=== PATIENT | female | born 1940 | race African-American/Black ===

== ENCOUNTER → 2021-06-11 10:29 | Outpatient (BNVA) | payer MEDICARE, SELFPAY | PROVIDERS: PCP Nurse Practitioner Family; Visit Provider Internal Medicine Cardiovascular Disease | DX: I71.4 Abdominal aortic aneurysm, without rupture (principal); I44.7 Left bundle-branch block, unspecified; I20.8 Other forms of angina pectoris; I10 Essential (primary) hypertension; E11.9 Type 2 diabetes mellitus without complications | CPT/HCPCS: 93005; 99202 ==

== ENCOUNTER → 2021-07-21 08:48 | Outpatient (REF) | payer MEDICARE, SELFPAY ==
--- NOTE | 2021-07-21 12:02 | CA_ITS ---
Transthoracic Echocardiogram Patient (Last, First, Middle): Delmi Malik, Gender: Female Date of : 1940 Age: 80 Procedure Date: 07/21/2021 Procedure Type: Transthoracic Echocardiogram Location: OP Height: 162.56 cm Weight: 86.01 kg BSA: 1.91 m2 Heart Rate: bpm BP: 118 / 60 mmHg Clinical Unit Educator: KIM Referring MD: Augustus Leiva MD Symptoms: I44.7 - Left bundle-branch block, unspecified Study Quality: Fair ECG Rhythm: Sinus Conclusions: - The left ventricular systolic function is normal. The visually estimated ejection fraction is between 65-70%. - LV peak GLS -17.6%. - There is mild mitral valve regurgitation. - (due to technical difficulty, reporting delayed). Findings Left Ventricle Normal left ventricular cavity size. There is mildly increased left ventricular wall thickness. The left ventricular systolic function is normal. The visually estimated ejection fraction is between 65-70%. E/E prime ratio is between 8 and 15 consistent with indeterminate filling pressures. Evidence suggests grade I (mild) diastolic dysfunction. LV peak GLS -17.6%. Right Ventricle Normal right ventricular cavity size and systolic function. Atria Both atria are normal in size. Aortic Valve There is a normal trileaflet aortic valve. There is no aortic valve stenosis. There is no aortic valve regurgitation. Mitral Valve The mitral valve appears normal. There is mild mitral valve regurgitation. There is no mitral valve stenosis. Pulmonic Valve The pulmonic valve was not well visualized. Tricuspid Valve Normal tricuspid valve structure. There is trace tricuspid valve regurgitation. The pulmonary artery systolic pressure is normal. Great Vessels The aorta was not well visualized. The sino tubular ridge is normal in size. Venous The inferior vena cava is normal in size and collapses greater than 50% with inspiration. Pericardium/Pleural There is no evidence of pericardial effusion. Prior Study Comparison No significant change compared to prior study dated: 07/05/2019. Measurements 2D Linear Measurements IVSd: 1.09 0.6-0.9/0.6-1.0 cm LVIDd: 4.27 3.9-5.3/4.2-5.9 cm LVIDd Index: 2.24 2.4-3.2/2.2-3.1 cm/m2 LVIDs: 2.71 2.0-3.6 cm LVPWd: 1.07 0.7-1.1 cm Ao Root: 2.60 2.1-3.5 cm LA Diam: 3.60 2.7-3.8/3.0-4.0 cm LAIDs Index: 1.88 1.5-2.3 cm/m2 LV Mass: 195.51 67-162/88-224 g LV Mass Index: 102.36 43-95/49-115 g/m2 LVOT Diam: 1.90 3.0+(-)1.3 cm 2D Systolic Function EF 4C: 78.70 >55% EF 2C: 73.90 >55% EF BiP: 76.80 >55% Mitral Valve MV Pk E: 0.70 MV PK A: 0.85 MV Decel Time: 177.00 E/A: 0.80 E'Lateral: 6.20 E'Medial: 5.11 E/E' Med: 13.70 E/E' Lat: 11.30 PHT: 52.00 MVA PHT: 4.23 Decel [place]: 3.94 Aortic Valve AoV Pk Zeke: 1.57 AoV Pk Grad: 10.00 LVOT LVOT Pk Zeke: 1.23 LVOT Mn Zeke: 0.90 LVOT VTI: 0.31 LVOT Pk Grad: 6.00 LVOT Mn Grad: 4.00 LVOT Diam: 1.90 LVOT Area: 2.84 Diastolic Function MV Pk E: 0.70 MV Pk A: 0.85 E/A: 0.80 E'Medial: 5.11 E/E' Med: 13.70 E' Laterial: 6.20 E/E' Lat: 11.30 Right Ventricle TAPSE (mm): 2.20 Tricuspid Valve TR Pk Zeke: 2.46 TR Pk Grad: 24.00 RVSP: 27.00 Great Vessels Aorta Ao Root-2D: 2.60 2.0-3.7 cm Updated in Other Vendor System with Status of Final Tejas Infante MD electronically signed on 07/26/2021 11:10:42 AM with status of Final
== END ==
LOC: HO.CARD 08:48
PROVIDERS: PCP Nurse Practitioner Family; Visit Provider Internal Medicine Cardiovascular Disease
DX: I44.7 Left bundle-branch block, unspecified (principal)
CPT/HCPCS: 93306; 93356

== ENCOUNTER 2021-08-07 08:42 | Outpatient (REF) | payer MEDICARE, SELFPAY ==
--- NOTE | ~2021-08-07 | MM_ITS ---
EXAMINATION: MM SCREENING DIGITAL BREAST TOMOSYNTHESIS, BILATERAL CLINICAL INFORMATION: Screening. Asymptomatic. The lifetime risk of breast cancer based on the Tyrer-Cuzick Model is 1.2%. COMPARISON: Mammography: June 27, 2020 and studies dating back to June 28, 2012 TECHNIQUE: Digital breast tomosynthesis is performed in both the craniocaudal and mediolateral oblique views along with computer-aided detection (CAD). Synthesized 2D images are generated from the tomosynthesis. FINDINGS: The breasts are almost entirely fatty (ACR BI-RADS breast composition Category a). There are no significant masses, abnormal calcifications, or other abnormalities. Stable calcifications seen about the inferior medial aspect of the left breast. MM/MM tomosynthesis screening BI IMPRESSION: There are no significant changes from prior study. ASSESSMENT: BI-RADS 2: Benign RECOMMENDATION: Routine annual mammography screening. This patient's information was entered into a reminder system with a target due date for their next mammogram.
== END 2021-08-07 08:43 | disposition home or self-care (01) ==
LOC: HO.MAMMO 08:42
PROVIDERS: Visit Provider Nurse Practitioner Family
DX: Z12.31 Encounter for screening mammogram for malignant neoplasm of breast (principal)
CPT/HCPCS: 77063; 77067

== ENCOUNTER 2021-09-16 08:51 | Outpatient (REF) | payer MEDICARE, SELFPAY ==
[2021-09-16 10:41] LABS: Free T4 (Free Thyroxine) 0.81 ng/dL (0.71-1.85); Thyroid Stimulating Hormone 1.04 uIU/mL (0.32-4.0)
== END 2021-09-16 08:52 | disposition home or self-care (01) ==
LOC: HO.LAB 08:51
PROVIDERS: PCP Nurse Practitioner Family; Visit Provider Nurse Practitioner Family
DX: R94.6 Abnormal results of thyroid function studies (principal)
CPT/HCPCS: 36415; 84439; 84443

== ENCOUNTER 2022-08-13 08:16 | Outpatient (REF) | payer MEDICARE, SELFPAY ==
--- NOTE | ~2022-08-13 | MM_ITS ---
EXAMINATION: MM SCREENING DIGITAL BREAST TOMOSYNTHESIS, BILATERAL CLINICAL INFORMATION: Screening. Asymptomatic. COMPARISON: Mammography: August 07, 2021 and studies dating back to November 14, 2015 TECHNIQUE: Digital breast tomosynthesis is performed in both the craniocaudal and mediolateral oblique views along with computer-aided detection (CAD). Synthesized 2D images are generated from the tomosynthesis. FINDINGS: There are scattered areas of fibroglandular density (ACR BI-RADS breast composition Category b). There are no new significant masses, abnormal calcifications, or other abnormalities. MM/MM tomosynthesis screening BI IMPRESSION: No significant changes from prior exam. ASSESSMENT: BI-RADS 1: Negative RECOMMENDATION: Routine annual mammography screening. This patient's information was entered into a reminder system with a target due date for their next mammogram.
== END 2022-08-13 08:17 | disposition home or self-care (01) ==
LOC: HO.MAMMO 08:16
PROVIDERS: Visit Provider Nurse Practitioner Family
DX: Z12.31 Encounter for screening mammogram for malignant neoplasm of breast (principal)
CPT/HCPCS: 77063; 77067

== ENCOUNTER → 2023-01-05 10:06 | Outpatient (BNVA) | payer MEDICARE, SELFPAY | PROVIDERS: PCP Nurse Practitioner Family; Referring Provider Nurse Practitioner Family; Visit Provider Internal Medicine Cardiovascular Disease | DX: I20.8 Other forms of angina pectoris (principal); I44.7 Left bundle-branch block, unspecified; I10 Essential (primary) hypertension | CPT/HCPCS: 93005; 99212 ==

== ENCOUNTER → 2023-02-04 08:43 | Outpatient (REF) | payer MEDICARE, SELFPAY ==
--- NOTE | 2023-02-04 08:48 | CA_ITS ---
Transthoracic Echocardiogram Patient (Last, First, Middle): Delmi Malik, Gender: Female Date of : 1940 Age: 82 Procedure Date: 02/04/2023 Procedure Type: Transthoracic Echocardiogram Location: OP Height: 167.64 cm Weight: 84.37 kg BSA: 1.94 m2 Heart Rate: 73 bpm BP: 138 / 70 mmHg Cardiac Rehabilitation Specialist: KOBI Referring MD: Augustus Leiva MD Roofing Superintendent: Augustus Leiva MD Symptoms: I20.8 - Other forms of angina pectoris Study Quality: Adequate ECG Rhythm: Sinus Conclusions: - 1. Normal LV systolic function with grade 1 diastolic dysfunction 2. Normal cardiac valvular Doppler 3. Normal RV systolic pressure 4. No gross pericardial effusion Findings Left Ventricle Normal left ventricular size, thickness, and systolic function. The visually estimated ejection fraction is between 65-70%. There is paradoxical septal motion consistent with a left bundle branch block. Spectral Doppler is indicative of an impaired relaxation filling pattern. E/E prime ratio is <8, consistent with normal filling pressures. Evidence suggests grade I (mild) diastolic dysfunction. Peak GLS is -17.4%, borderline low. Right Ventricle Normal right ventricular cavity size and systolic function. Atria Both atria are normal in size. There is no evidence of interatrial shunt. Aortic Valve Normal aortic valve structure and function. There is no aortic valve stenosis. There is no aortic valve regurgitation. Mitral Valve Normal mitral valve structure and function. There is trace mitral valve regurgitation. There is no mitral valve stenosis. Pulmonic Valve The pulmonic valve was not well visualized. Tricuspid Valve Likely normal tricuspid valve structure and function. There is trace tricuspid valve regurgitation. The right ventricular systolic pressure is normal. The right ventricular systolic pressure is 13 mmHg. Normal right atrial pressure. There is no evidence of pulmonary hypertension. Great Vessels All visible segments of the aorta are normal in size. The pulmonary artery was not well visualized. Venous The inferior vena cava is normal in size and collapses greater than 50% with inspiration. Pericardium/Pleural There is no evidence of pericardial effusion. Prior Study Comparison No significant change compared to prior study dated: 07/21/2021. Measurements 2D Linear Measurements IVSd: 1.10 0.6-0.9/0.6-1.0 cm LVIDd: 4.31 3.9-5.3/4.2-5.9 cm LVIDd Index: 2.22 2.4-3.2/2.2-3.1 cm/m2 LVIDs: 2.83 2.0-3.6 cm LVPWd: 1.11 0.7-1.1 cm LA Diam: 3.00 2.7-3.8/3.0-4.0 cm LAIDs Index: 1.55 1.5-2.3 cm/m2 LV Mass: 204.99 67-162/88-224 g LV Mass Index: 105.66 43-95/49-115 g/m2 LVOT Diam: 1.90 3.0+(-)1.3 cm 2D Systolic Function EF 4C: 65.60 >55% EF 2C: 65.40 >55% EF BiP: 66.30 >55% Mitral Valve MV Pk E: 0.62 MV PK A: 0.94 MV Decel Time: 253.00 E/A: 0.70 E'Lateral: 5.66 E'Medial: 5.44 E/E' Med: 11.30 E/E' Lat: 10.90 PHT: 74.00 MVA PHT: 2.97 Decel [place]: 2.44 Aortic Valve AoV Pk Zeke: 1.38 AoV Mn Zeke: 1.02 AoV VTI: 0.31 AoV Pk Grad: 8.00 Aov Mn Grad: 5.00 YOANA Cont.VTI: 2.26 LVOT LVOT Pk Zeke: 1.10 LVOT Mn Zeke: 0.83 LVOT VTI: 0.25 LVOT Pk Grad: 5.00 LVOT Mn Grad: 3.00 LVOT Diam: 1.90 LVOT Area: 2.84 Diastolic Function MV Pk E: 0.62 MV Pk A: 0.94 E/A: 0.70 E'Medial: 5.44 E/E' Med: 11.30 E' Laterial: 5.66 E/E' Lat: 10.90 Tricuspid Valve TR Pk Zeke: 1.56 TR Pk Grad: 10.00 RA Press: 3.00 RVSP: 13.00 Great Vessels Aorta Sinus of Valsalva: 2.90 2.0-3.[address] [place]: 2.46 1.7-3.4 cm Ao Asc: 3.60 2.1-3.4 cm Updated in Other Vendor System with Status of Final Augustus Leiva MD electronically signed on 02/05/2023 2:25:25 PM with status of Final
== END ==
LOC: HO.CARD 08:43
PROVIDERS: PCP Nurse Practitioner Family; Visit Provider Internal Medicine Cardiovascular Disease
DX: I20.8 Other forms of angina pectoris (principal)
CPT/HCPCS: 93306; 93356; J0280; J2785

== ENCOUNTER → 2023-02-05 09:23 | Outpatient (REF) | payer MEDICARE, SELFPAY ==
--- NOTE | ~2023-02-05 | NM_ITS ---
Lexiscan Myocardial perfusion study Indication: Chest pain, assess for coronary disease and ischemia Technique: The patient was brought in for a Lexiscan perfusion study on 02/05/2023 and was injected 0.4 mg of Lexiscan intravenously. Within a minute of this injection 30 mCi of sestamibi was given intravenously. Images were obtained using the SPECT gamma camera interlaced with the gating device. Images were obtained in supine position. Resting perfusion study was performed on 02/11/2023. Patient was administered 30 mCi of sestamibi intravenously at rest. Images were then obtained in supine position. Images were processed with the software and compared side to side in short axis, horizontal long axis and vertical long axis views. Total DLP 141mGy-cm. Findings: Raw acquisition reviewed. Arms by the patient's side. The stress perfusion study showed diminished tracer uptake along the septum. There is some improvement with CT attenuation correction and hence there could be partially artifactual etiology.. The gated study shows diminished LV systolic function with calculated LVEF of 33%. LV cavity is normal in size. The gated study shows globally reduced wall thickening and contraction of segments. Resting study shows reduced tracer uptake along the septum but slightly better compared to stress acquisition. There is improvement with CT attenuation correction in the base and mid areas but the apical septum still has perfusion of normality.. Gating at rest reveals globally reduced wall motion with ejection fraction at 23%. The findings are consistent with mostly fixed appearing septal defect, with slight reversibility. NM/NM cortes perf SPECT rest & str Impression: 1. Myocardial perfusion imaging study shows fixed anteroseptal defect with mild reversibility. Cannot differentiate if this is all from left bundle branch block or if additional ischemia. 2. Gated LVEF is 33% during stress and 20% during rest. Correlate with echocardiogram. Visually, LVEF appears higher. 3. Transient ischemic dilatation not present. EKG component of the test reported separately.
--- NOTE | 2023-02-05 09:29 | CA_ITS ---
Acquisition Time: 2023-02-05 09:07:05 Total Exercise Time: 00:02:00 Test Indications: Abnormal ECG CP Medications: ASA CITALOPRAM HCTZ ISOSORBIDE LISINOPRIL METFORMIN METOPROLOL SIMVASTATIN Protocol: LEXISCAN Max HR: 101 BPM 73% of Pred: 138 BPM Max BP: 132/078 mmHG Max Work Load: 1.0 METS Pharmacological stress test with Lexiscan injection while sitting and slowly kicking her legs for one minute, without anginal symptoms, isolated PACs, with normotensive response to injection, without EKG changes. Aminophylline 75mg IVP given to reverse Lexiscan. Nuclear images pending. Test reviewed with Dr. Leiva. Referred By: Augustus Leiva Overread By: MG MANN
== END ==
LOC: HO.CARD 09:23
PROVIDERS: Visit Provider Internal Medicine Cardiovascular Disease
DX: I20.8 Other forms of angina pectoris (principal)
CPT/HCPCS: 78452; 93017; A9500

== ENCOUNTER 2023-08-11 10:13 | Outpatient (REF) | payer MEDICARE, SELFPAY ==
--- NOTE | ~2023-08-11 | US_ITS ---
EXAMINATION: US THYROID CLINICAL INFORMATION: Thyrotoxicosis, overactive thyroid gland. COMPARISON: None available. TECHNIQUE: Linear transducer serrano-scale and color Doppler examination with attention to the region of the thyroid. FINDINGS: SIZE: Measurements of the thyroid lobes and nodules are given in sagittal, anteroposterior and transverse dimensions respectively. Right Thyroid Lobe: 4.7 x 2.6 x 2.4 cm, volume 15.0 mL. Parenchyma: The gland echotexture is heterogeneous. Thyroid vascularity is increased. Left Thyroid Lobe: 4.9 x 2.6 x 2.0 cm, volume 13.3 mL. Parenchyma: The gland echotexture is heterogeneous. Thyroid vascularity is normal. Isthmus: 1.0 cm in maximum AP dimension. Estimated total number of nodules greater than or equal to 1 cm: 4. Assistant Toddler Teacher nodules are described as follows: 1. Location: Right superior. Size: 1.5 x 0.9 x 1.3 cm, volume 0.9 mL. Nodule characteristics: Composition: Solid/almost completely solid (2). Echogenicity: Hypoechoic (2). Shape: Not taller than wide (0). Margins: Ill-defined (0). Echogenic Foci: Punctate echogenic foci (3). ACR TI-RADS total points: 7 ACR TI-RADS category: 5 2. Location: Right inferior. Size: 1.6 x 1.1 x 2.2 cm, volume 2.0 mL. Nodule characteristics: Composition: Solid (2). Echogenicity: Isoechoic (1). Shape: Not taller than wide (0). Margins: Smooth (0). Echogenic Foci: None (0). ACR TI-RADS total points: 3 ACR TI-RADS category: 3 3. Location: Right mid. Size: 1.0 x 0.9 x 1.3 cm, volume 0.6 mL. Nodule characteristics: Composition: Solid/almost completely solid (2). Echogenicity: Hyperechoic (1). Shape: Not taller than wide (0). Margins: Smooth (0). Echogenic Foci: None (0). ACR TI-RADS total points: 3 ACR TI-RADS category: 3 4. Location: Left-sided. Size: 0.7 x 0.6 x 0.6 cm, volume 0.1 mL. Nodule characteristics: Composition: Solid/almost completely solid (2). Echogenicity: Isoechoic (1). Shape: Not taller than wide (0). Margins: Smooth (0). Echogenic Foci: None (0). ACR TI-RADS total points: 3 ACR TI-RADS category: 3 5. Location: Left inferior. Size: 1.2 x 0.8 x 1.1 cm, volume 0.6 mL. Nodule characteristics: Composition: Solid/almost completely solid (2). Echogenicity: Hyperechoic (1). Shape: Not taller than wide (0). Margins: Ill-defined (0). Echogenic Foci: None (0). ACR TI-RADS total points: 3 ACR TI-RADS category: 3 NODES: No lymphadenopathy is seen in the tissue surrounding the thyroid gland. US/US thyroid IMPRESSION: Multinodular thyroid gland. 1.5 cm TR 5 nodule in the right upper gland meets ACR TI-RADS guidelines for fine-needle aspiration. The other nodules do not meet criteria for aspiration or ongoing surveillance. ACR TI-RADS RECOMMENDATION REFERENCE: Ultrasound-guided fine-needle aspiration, followup ultrasound, no further follow up. * TR1 (0 point) and TR2 (2 points): No FNA or follow up. * TR3 (3 points): FNA if more than or equal to 2.5 cm in maximum dimension, followup ultrasound in 1, 3 and 5 years if 1.5 to 2.4 cm in maximum dimension. * TR4 (4-6 points): FNA if more than or equal to 1.5 cm in maximum dimension, followup ultrasound in 1, 2, 3 and 5 years if 1 to 1.4 cm in maximum dimension. * TR5 (more than or equal to 7 points): FNA if more than or equal to 1 cm in maximum dimension, followup ultrasound every year for 5 years if 0.5 to 0.9 cm in maximum dimension. * TR3, TR4 or TR5 nodules that are below the size threshold for followup receive no follow up.
== END 2023-08-11 10:14 | disposition home or self-care (01) ==
LOC: HO.US 10:13
PROVIDERS: PCP Nurse Practitioner Family; Visit Provider Nurse Practitioner Family
DX: E05.90 Thyrotoxicosis, unspecified without thyrotoxic crisis or storm (principal)
CPT/HCPCS: 76536

== ENCOUNTER 2023-08-17 08:44 | Outpatient (REF) | payer MEDICARE, SELFPAY ==
--- NOTE | ~2023-08-17 | MM_ITS ---
EXAMINATION: MM SCREENING DIGITAL BREAST TOMOSYNTHESIS, BILATERAL CLINICAL INFORMATION: Screening. Asymptomatic. The patient has had 3 benign excisional biopsies of the left breast. COMPARISON: Mammography: This study is compared with prior exams dating back to 2017. TECHNIQUE: Digital breast tomosynthesis is performed in both the craniocaudal and mediolateral oblique views along with computer-aided detection (CAD). Synthesized 2D images are generated from the tomosynthesis. FINDINGS: The breasts are almost entirely fatty (ACR BI-RADS breast composition Category a). There are grouped calcifications at a middle depth and the lower inner quadrant of the left breast. These warrant additional mammographic imaging with magnification. Few, coarse, benign calcifications are also present in the deep third of the lower inner quadrant of the left breast. There is minor architectural change in the upper outer quadrant of the left breast from one of the prior benign surgical excisions. In the right breast, there are no significant masses, abnormal calcifications, or other abnormalities. There is coarse, benign calcification in the upper outer quadrant of the right breast which has the appearance of an involuting fibroadenoma. MM/MM tomosynthesis screening BI IMPRESSION: Grouped calcifications in the left breast warrants additional mammographic imaging with magnification.. No mammographic signs of malignancy right breast. ASSESSMENT: BI-RADS BI-RADS 0 - Incomplete: Needs additional Imaging. RECOMMENDATION: Additional views of the left breast. Radiology department staff will contact the patient for additional imaging. Additional Imaging required This examination should not preclude the clinical evaluation of a suspicious palpable abnormality. This patient's information was entered into a reminder system with a target due date for their next mammogram.
== END 2023-08-17 08:45 | disposition home or self-care (01) ==
LOC: HO.MAMMO 08:44
PROVIDERS: PCP Nurse Practitioner Family; Visit Provider Nurse Practitioner Family
DX: Z12.31 Encounter for screening mammogram for malignant neoplasm of breast (principal)
CPT/HCPCS: 77063; 77067

== ENCOUNTER → 2023-08-17 08:45 | Outpatient (BNV) | payer MEDICARE, SELFPAY | PROVIDERS: PCP Nurse Practitioner Family; Visit Provider Radiology Diagnostic Radiology | DX: Z12.31 Encounter for screening mammogram for malignant neoplasm of breast (principal) | CPT/HCPCS: 77063; 77067 ==

== ENCOUNTER 2023-09-13 09:30 | Outpatient (REF) | payer MEDICARE, SELFPAY ==
--- NOTE | ~2023-09-13 | MM_ITS ---
EXAMINATION: MM DIAGNOSTIC DIGITAL BREAST TOMOSYNTHESIS, LEFT CLINICAL INFORMATION: Evaluate left breast calcifications lower inner aspect left breast. Patient has history of 3 benign excisional biopsies left breast. COMPARISON: Mammography: 08/17/2023, 08/13/2022, 08/07/2021, 06/27/2020, and dating back to 2017. TECHNIQUE: Digital left breast tomosynthesis is performed in 90 degree ML 3-D view along with computer-aided detection (CAD). Synthesized 2D images are generated from the tomosynthesis. Spot magnification left CC and ML views were also obtained of the area of interest. FINDINGS: There are scattered areas of fibroglandular density (ACR BI-RADS breast composition Category b). Calcifications in the lower inner left breast were evaluated [id number] and determined to be benign, however on today's magnification views, there appears to be an increase in number with increasing pleomorphism. Although the findings may represent biopsy site and dystrophic changes, these are currently indeterminate, and stereotactic biopsy recommended for tissue diagnosis. Otherwise, stable scarring from excisional biopsies. Stable dystrophic calcifications in the inferior posterior left breast. No suspicious masses, or areas of architectural distortion left breast. MM/MM tomosynthesis diagnostic LT IMPRESSION: There are suspicious indeterminate calcifications in the left breast lower inner quadrant, for which stereotactic biopsy is recommended for tissue diagnosis. These have been followed in [id number], however has definitely increased in number and pleomorphism currently. Biopsy is indicated. Findings and recommendations were discussed with the patient in detail. ASSESSMENT: BI-RADS BI-RADS 4 - Suspicious finding RECOMMENDATION: Biopsy recommended
== END 2023-09-13 09:31 | disposition home or self-care (01) ==
LOC: HO.MAMMO 09:30
PROVIDERS: PCP Nurse Practitioner Family; Visit Provider Nurse Practitioner Family
DX: R92.1 Mammographic calcification found on diagnostic imaging of breast (principal)
CPT/HCPCS: 77061; 77065

== ENCOUNTER → 2023-09-13 09:30 | Outpatient (BNV) | payer MEDICARE, SELFPAY | PROVIDERS: PCP Nurse Practitioner Family; Visit Provider Radiology Diagnostic Radiology | DX: R92.1 Mammographic calcification found on diagnostic imaging of breast (principal) | CPT/HCPCS: 77061; 77065 ==

== ENCOUNTER 2023-09-22 08:03 | Outpatient (AMB) | payer MEDICARE, SELFPAY ==
--- NOTE | 2023-09-22 08:13 | A.OFFVIS_ITS ---
Intake Vital Signs 09/22/23 08:21 Weight 195 lb Intake Visit Reasons: Lt breast Stereo Calcs Intake Note: This patient presents for a Stereotactic left breast biopsy for calcifications. Patient c/o; reports no breast complaints at this time. Sweatband Separator Required: No Dwarf Tree Grower: Dwarf Tree Grower Present (Ming) Accompanied by: Self / Same As Patient Allergies No Known Allergies [No Known Allergies*] Allergy (Unverified 09/22/23 08:21) Medication List - Last Reconciled 09/22/23 by Ld Romero MD aspirin (Adult Aspirin Regimen) 81 mg PO DAILY calcium carbonate-vitamin D3 500 mg-10 mcg (400 unit) (Calcium 500 With D) 1 tab PO DAILY cholecalciferol (vitamin D3) (Vitamin D3) 25 mcg PO DAILY citalopram 20 mg PO DAILY hydrochlorothiazide 12.5 mg PO DAILY isosorbide mononitrate ER 60 mg PO DAILY lisinopril 20 mg PO DAILY metformin 500 mg PO BID metoprolol succinate ER 25 mg PO DAILY simvastatin 40 mg PO BEDTIME HPI Lt breast Stereo Calcs HPI Details 83F referred for left breast calcificati ons. She had undergone a ffup mammogram last 2022 for which showed indeterminate calcifications in the lower inner quadrant of the left breast. These deemed to have had some increased in pleomorphism and number from her previous mammograms. She was t herefore recommended to undergo stereotactic biopsy She denies any palpable breast masses. She says she had excision of small lumps on her Left breast times about 30 years ago and these were all benign. Her menarche was at the age of 18. Her 1st was at age of 20. She had 4 pregnancies. She had menopause in her 50s. She denies any family history of breast cancer. [facility] Medical History Breast calcification, left Abdominal aortic aneurysm Diabetes mellitus HTN (hypertension) Exertional angina Left bundle branch block Family History Father No problems noted. Mother No problems noted. Social History Patient Tobacco Use Status: Never used Tobacco Female Reproductive History Menstrual Total pregnancies: 4 Number of Living Children: 3 Review of Systems Const Denies chills and Denies fever(s) Card Denies chest pain, Denies dyspnea and Denies dyspnea on exertion Resp Denies cough, Denies dyspnea and Denies dyspnea on exertion GI Denies hematochezia and Denies change in bowel habits Denies hematuria Musc Denies back pain and Denies limited range of motion Neuro Denies focal weakness and Denies convulsions Psych Denies depression and Denies mood swings Physical Exam Const General: comfortable and no acute distress Orientation/consciousness: patient oriented x3 Neck Neck: Yes no lymphadenopathy Chest Other: Large, pendulous breasts, no palpable masses, 2 small scars on the left breast seen, no axillary lymphadenopathy, no nipple or skin changes Resp Auscultation: clear to auscultation bilaterally Cardio Rhythm: regular rhythm GI Palpation (GI): Soft to palpation, nontender and no guarding Neuro General: patient oriented x3 Assessment & Plan Assessment & Plan (1) Breast calcification, left: Code(s): R92.1 - Mammographic calcification found on diagnostic imaging of breast Plan: She had indeterminate calcifications in the lower inner quadrant of the left breast and a stereotactic biopsy was recommended. I explained to her the technique of this procedure. I will see her again in the office next week to courtney fink the path report. She seems to understand the plan well. Orders: Orders MM stereotactic biopsy LT 09/21/23 R92.1 - Mammographic calcification found on diagnostic imaging of breast Coding Level of Care Code New Pt Level 3 (79696) Diagnoses Breast calcification, left R92.1
== END 2023-09-22 08:48 | disposition home or self-care (01) ==
PROVIDERS: PCP Nurse Practitioner Family; Visit Provider Surgery
DX: R92.1 Mammographic calcification found on diagnostic imaging of breast (principal)
CPT/HCPCS: 99203

== ENCOUNTER 2023-09-22 09:01 | Outpatient (REF) | payer MEDICARE, SELFPAY ==
--- NOTE | ~2023-09-22 | MM_ITS ---
EXAMINATION: STEREOTACTIC TOMOSYNTHESIS-GUIDED VACUUM-ASSISTED BREAST BIOPSY, LEFT SPECIMEN RADIOGRAPH, LEFT POST PROCEDURE DIGITAL MAMMOGRAM, LEFT CLINICAL INFORMATION: Grouped pleomorphic calcifications lower inner quadrant left breast, suspicious, biopsy recommended. COMPARISON: 09/13/2023, 08/17/2023, 08/13/2022, 08/07/2021, and dating back to 2012. TECHNIQUE/PROCEDURE: Informed consent was obtained from the patient after discussion of the benefits, risks, and alternatives to biopsy today. Patient appeared to understand. Gave opportunity for questions. Patient signed consent form. BIOPSY TABLE: [facility] Biopsy System. LESION: Left breast calcifications lower inner quadrant. LOCAL ANESTHESIA: 3 mL 1% lidocaine; 8 mL 1% lidocaine with epinephrine. DERMATOTOMY: Single skin gage dermatotomy performed. NEEDLE: Warp 9iva 9-gauge vacuum assisted core biopsy device. APPROACH: medial lateral. TARGETING: Combination of digital breast tomosynthesis and stereotactic digital mammography used for targeting. CORES: 7. CLIP: Top hat-shaped. SPECIMEN RADIOGRAPH: Specimen radiograph is taken in separate room using digital mammography. The majority of the index calcifications are in the excised cores. POST PROCEDURE UNILATERAL DIGITAL MAMMOGRAM: The post biopsy mammogram is performed in separate room using separate digital mammography equipment from the biopsy procedure. CC and ML views are obtained. The clip marker is in position. It appears in place on the ML view, but has migrated approximately 5 mm medial on the CC projection, likely secondary to accordion effect. The calcifications are markedly decreased at the biopsy site. No gross hematoma. The patient tolerated the procedure well. No immediate complications. Home instructions reviewed with the patient. Final pathology results are pending. MM/MM stereotactic biopsy LT IMPRESSION: 1. Digital tomosynthesis-guided core biopsy left breast with clip placement. 2. Specimen radiograph taken and post procedure mammogram. Please see above for statement on clip placement, which may have migrated 5 mm medially due to accordion effect. 3. Final pathology results pending. An addendum report will be issued.
== END 2023-09-22 09:02 | disposition home or self-care (01) ==
LOC: HO.MAMMO 09:01
PROVIDERS: PCP Nurse Practitioner Family; Visit Provider Surgery
DX: R92.1 Mammographic calcification found on diagnostic imaging of breast (principal)
CPT/HCPCS: 19081; 88305; 99202; A4648

== ENCOUNTER → 2023-09-22 10:00 | Outpatient (BNV) | payer MEDICARE, SELFPAY | PROVIDERS: PCP Nurse Practitioner Family; Visit Provider Radiology Diagnostic Radiology | DX: R92.1 Mammographic calcification found on diagnostic imaging of breast (principal) | CPT/HCPCS: 19081 ==

== ENCOUNTER → 2023-09-29 08:37 | Outpatient (BNVA) | payer MEDICARE, SELFPAY | PROVIDERS: PCP Nurse Practitioner Family; Visit Provider Surgery | DX: R92.1 Mammographic calcification found on diagnostic imaging of breast (principal) ==

== ENCOUNTER 2024-01-10 10:50 | Outpatient (AMB) | payer MEDICARE, SELFPAY ==
[2024-01-10 11:11] VITALS: BP 120/74; PULSE 77; BMI 31.2
--- NOTE | 2024-01-10 11:11 | A.OFFVIS_ITS ---
Intake Vital Signs 01/10/24 11:11 Height 5 ft 5 in Weight 187 lb 6.287 oz BMI 31.2 BP 120/74 Blood Pressure Location Lt brachial Position Sitting Pulse 77 Intake Visit Reasons: 1 yr f/up Intake Note: 1 year follow-up with ekg feeling good Sausage Smoker Required: No Allergies No Known Allergies [No Known Allergies*] Allergy (Unverified 09/22/23 08:21) Medication List - Last Reconciled 01/10/24 by Augustus Leiva MD aspirin (Adult Aspirin Regimen) 81 mg PO DAILY calcium carbonate-vitamin D3 500 mg-10 mcg (400 unit) (Calcium 500 With D) 1 tab PO DAILY cholecalciferol (vitamin D3) (Vitamin D3) 25 mcg PO DAILY citalopram 20 mg PO DAILY hydrochlorothiazide 12.5 mg PO DAILY isosorbide mononitrate ER 60 mg PO DAILY lisinopril 20 mg PO DAILY metformin 500 mg PO BID metoprolol succinate ER 25 mg PO DAILY simvastatin 40 mg PO BEDTIME HPI HPI Comments History of Present Illness Details Delmi comes for follow-up. She has been doing well. She has a little upset because she recently has lost her long-term primary care physician. But overall she has been doing well. She says she has not had lab work for a while. She denies any exertional chest pain or shortness of breath. She denies any orthopnea, PND. No lightheadedness, syncope, prolonged palpitations. She takes all her medications without any issues. Remains fairly active. [facility] Medical History Breast calcification, left Abdominal aortic aneurysm Diabetes mellitus HTN (hypertension) Exertional angina Left bundle branch block Family History Father No problems noted. Mother No problems noted. Social History Patient Tobacco Use Status: Never used Tobacco Review of Systems Const Denies chills, Denies fatigue, Denies fever(s), Denies frequent falls, Denies weakness, Denies weight gain and Denies weight loss ENT Denies dizziness Card Denies chest pain, Denies leg edema, Denies lightheadedness, Denies palpitations, Denies dyspnea, Denies dyspnea on exertion, Denies orthopnea and Denies other (loss of consciousness) Resp Denies cough, Denies dyspnea and Denies dyspnea on exertion GI Denies hematochezia and Denies change in stool character Musc Denies abnormal gait, Denies muscle weakness, Denies numbness, Denies radiating pain into limb and Denies tingling Neuro Denies Abnormal speech present, Denies abnormal gait, Denies dizziness, Denies frequent falls, Denies numbness, Denies tingling and Denies weakness Endo Denies fatigue and Denies palpitations Physical Exam Vital Signs: Last Vital Signs Pulse 77 01/10/24 11:11 BP 120/74 01/10/24 11:11 BMI result Body Mass Index 31.2 Const General: cooperative, comfortable, no acute distress, alert, awake, Physically active and well groomed Nutritional Appearance: obese Orientation/consciousness: patient oriented x3 Limitations: no limitations HEENT Head: Yes normocephalic and Yes atraumatic Neck Neck: Yes trachea midline, Yes supple and Yes no JVD Resp Effort & Inspection: normal respiratory effort Auscultation: clear to auscultation bilaterally Cardio Jugular venous distension: no JVD Palpation: normal PMI Rate: regular rate Rhythm: regular rhythm Heart sounds: S1 normal heart sound present, S2 normal heart sound present, no click, no gallops, Murmur heart sound present systolic early and no rubs Peripheral pulses: Peripheral pulses 2+ throughout GI Auscultation: normal bowel sounds Skin General skin exam: no rashes or lesions noted Neuro General: patient oriented x3 and no focal motor deficits Speech: No Abnormal speech present Extrem General: Yes no clubbing, cyanosis or edema Psych Appearance: grossly normal Office Procedures EKG Details: EKG shows normal sinus rhythm with left bundle-branch block, unchanged from before [id number], Complete Assessment & Plan Assessment & Plan (1) Exertional angina: Code(s): I20.8 - Other forms of angina pectoris Plan: Exertional chest pain the past walking up a hill. Currently she has not having any symptoms at current level of activity on dual antianginal therapy with metoprolol and isosorbide. A myocardial perfusion imaging last year showed low risk findings. No invasive workup is required at this point time. Continue dual antianginal therapy at this point time. Continue low-dose aspirin therapy. Continue statin therapy with target goal LDL less than 70 mg/dL. Blood pressure is currently well optimized,advised to monitor blood pressure at home maintain a log. Lab work will be obtained in near future. (2) Abdominal aortic aneurysm: Code(s): I71.4 - Abdominal aortic aneurysm, without rupture Plan: Prior history of abdominal aortic aneurysm with no imaging done for few years. Will follow-up with abdominal aortic ultrasound to evaluate for the same. Further treatment based on the findings. Continue aggressive vascular risk factor modification above. Aggressive diabetes control goal hemoglobin A1c less than 7%. (3) Left bundle branch block: Code(s): I44.7 - Left bundle-branch block, unspecified Plan: Left bundle-branch block which is chronic. No symptoms related to it. Continue monitor. Echocardiogram next year. Will follow up in the clinic in 1 year's time, sooner p.r.n.. Thank you for allowing me to partake in the care Orders: Orders AMB Hemoglobin A1c Today I10 - Essential (primary) hypertension, Z13.9 - Encounter for screening, unspecified Basic Metabolic Panel Today I71.4 - Abdominal aortic aneurysm, without rupture Complete Blood Count no Diff Today I71.4 - Abdominal aortic aneurysm, without rupture Lipid Panel Today I71.4 - Abdominal aortic aneurysm, without rupture US abdominal aortic aneurysm Today I71.4 - Abdominal aortic aneurysm, without rupture TSH reflex Free T4 Today I10 - Essential (primary) hypertension Coding Level of Care Code Est Pt Level 4 (72727) Diagnoses Exertional angina I20.8 Abdominal aortic aneurysm I71.4 Left bundle branch block I44.7 CPT Codes EKG - CPT: 57251-[id number], Complete ([id number])
== END 2024-01-10 11:49 | disposition home or self-care (01) ==
PROVIDERS: Visit Provider Internal Medicine Cardiovascular Disease
DX: I20.89 Other forms of angina pectoris (principal); I71.40 Abdominal aortic aneurysm, without rupture, unspecified; I44.7 Left bundle-branch block, unspecified
CPT/HCPCS: 93010; 99214

== ENCOUNTER → 2024-01-10 10:50 | Outpatient (BNVA) | payer MEDICARE, SELFPAY | PROVIDERS: Visit Provider Internal Medicine Cardiovascular Disease | DX: I20.89 Other forms of angina pectoris (principal); I44.7 Left bundle-branch block, unspecified; I71.40 Abdominal aortic aneurysm, without rupture, unspecified | CPT/HCPCS: 93005; 99212 ==

== ENCOUNTER 2024-02-10 08:47 | Outpatient (REF) | payer MEDICARE, SELFPAY ==
--- NOTE | ~2024-02-10 | US_ITS ---
EXAMINATION: US RETROPERITONEAL LIMITED (AORTA) CLINICAL INFORMATION: Abdominal aortic aneurysm, without rupture. COMPARISON: Ultrasound aorta 07/10/2019. TECHNIQUE: Callaway-scale, color Doppler and spectral Doppler evaluation of the abdominal aorta. FINDINGS: The measurements of the aorta in maximum AP and transverse dimensions respectively are as follows: Proximal: 1.9 x 1.5 cm, previously 2.2 x 2.2 cm. Mid: 2.6 x 2.4 cm, previously 2.6 x 2.5 cm. Distal: 1.3 x 1.3 cm, previously 1.4 x 1.6 cm. PSV: 140 cm/s. The measurements of the common iliac arteries in maximum AP and TRV dimensions are as follows: Right Common Iliac Artery: 0.8 x 1.0 cm, previously 0.9 x 1.1 cm. Left Common Iliac Artery: 0.8 x 0.9 cm, previously 0.9 x 0.9 cm. US/US abdominal aortic aneurysm IMPRESSION: Mid aortic ectasia, similar to prior. No evidence for abdominal aortic aneurysm. Based on published guidelines in J Am Val Radiol 2013; 10(10):789-794 and J Vasc Surg. 2018; 67:2-77, the recommendation for an abdominal aorta <2.6 cm in diameter is no follow-up is recommended.
[2024-02-10 10:19] LABS: Hematocrit 36.7 % (37.0-47.0); Mean Corpuscular HGB Conc 32.7 g/dl (31.0-35.0); Mean Corpuscular Hemoglobin 26.9 pg (27.0-33.0); Mean Corpuscular Volume 82.3 fL (80.0-98.0); Mean Platelet Volume 9.9 fL (9.4-12.3); Platelet Count 292 X10*3/uL (160-400); Red Blood Count 4.46 X10*6/uL (4.20-5.50); Red Cell Distribution Width 14.3 % (11.0-16.0); White Blood Count 6.8 X10*3/uL (4.8-10.8)
[2024-02-10 11:10] LABS: Anion Gap 12 (12-20); Blood Urea Nitrogen 11 mg/dL (9-16); Calcium 10.2 mg/dL (8.4-10.2); Carbon Dioxide 29 mmol/L (22-29); Chloride 103 mmol/L (96-108); Cholesterol 159 mg/dL (<200); Estimated Glomerular Filt Rate > 60; Glucose Random 109 mg/dL (60-115); HDL Cholesterol 71 mg/dL (>40); LDL Cholesterol Calculated 77 mg/dL (<100); Potassium 3.7 mmol/L (3.3-5.1); Sodium 140 mmol/L (135-145); Triglycerides 55 mg/dL (<150)
[2024-02-10 11:15] LABS: TSH reflex Free T4 0.31 uIU/mL (0.32-4.0)
[2024-02-10 11:51] LABS: Free T4 (Free Thyroxine) 0.96 ng/dL (0.71-1.85)
== END 2024-02-10 08:48 | disposition home or self-care (01) ==
LOC: HO.US 08:47
PROVIDERS: Visit Provider Internal Medicine Cardiovascular Disease
DX: I71.40 Abdominal aortic aneurysm, without rupture, unspecified (principal); I10 Essential (primary) hypertension
CPT/HCPCS: 36415; 76706; 80048; 80061; 84439; 84443; 85027

== ENCOUNTER 2024-11-07 10:03 | Outpatient (AMB) | payer MEDICARE, SELFPAY ==
--- NOTE | 2024-11-07 10:31 | A.OFFPC_ITS ---
Vital Signs 11/07/24 10:33 Height 5 ft 3.39 in Weight 177 lb BMI 31.0 BP 110/76 Blood Pressure Location Lt brachial Position Sitting Pulse 80 Pulse Source Pulse Oximeter Temp 96.9 F Temp Source Skin Pulse Oximetry (%) 98 Oxygen Delivery Method Room Air Intake Visit Reasons: establish care Intake Note: Patient is a new patient here to establish care for HTN, DM, Cholesterol. Transferring care from Dr Xenia Todd. Medical records have been requested and have not received. Career Coach Required: No Spray Applicator: Not Required per policy Accompanied by: Self / Same As Patient Allergies No Known Allergies [No Known Allergies*] Allergy (Verified 11/07/24 11:00) Medication List - Last Reconciled 11/07/24 by Hailey Del Rosario PA-C aspirin (Adult Aspirin Regimen) 81 mg PO DAILY cholecalciferol (vitamin D3) (Vitamin D3) 25 mcg PO DAILY citalopram 20 mg PO DAILY hydrochlorothiazide 12.5 mg PO DAILY isosorbide mononitrate ER 60 mg PO DAILY lisinopril 20 mg PO DAILY metformin 500 mg PO BID metoprolol succinate ER 25 mg PO DAILY simvastatin 40 mg PO BEDTIME Tobacco use date assessed: 11/07/24 Fall risk assessment: No Falls in past year Last assessed Fall Risk: 11/07/24 Dental Screening Dental Screen Date: 11/07/24 Did you have a dental visit in the last 12 months?: No Did you have a dental problem in the last 6 months where you did not have access to dental care?: No Was dental information given to patient?: No HPI establish care HPI Details 84-year-old female coming to the office for the 1st time.? Patient has a previous history of hypertension, abdominal aortic aneurysm and left breast calcification.? In review of the notes, patient was seen by Cardiology 01/2024 advised to continue on dual antianginal therapy, low-dose aspirin and statin therapy with target goal LDL less than 70.? Also advised aggressive vascular risk factor modification with A1c less than 7% and follow up in 1 year. Patient was previously being seen by PCP in [place]. She has been taking all medications except has been without the metformin for over 1 month. She has no acute concerns today and states she is feeling generally well. COUNT INCLUDES THE [facility] Medical History (Updated 11/07/24 @ 13:20 by Hailey Del Rosario PA-C) Breast calcification, left Abdominal aortic aneurysm Diabetes mellitus HTN (hypertension) Exertional angina Left bundle branch block Surgical History No pertinent past surgical history Family History Father No problems noted. Mother Alzheimer dementia Social History Housing: Apartment Alcohol intake: never Patient Tobacco Use Status: Never used Tobacco e-Cigarette/Vaping Use: Never Used Second Hand Smoke Exposure: No service: No Current occupational status: retired Cognitive needs: Yes (Cane) Hearing needs: No Vision needs: No Questionnaire PHQ-9 Over the last 2 weeks, how often have you been bothered by any of the following problems? 1. Little interest or pleasure in doing things: not at all 2. Feeling down, depressed, or hopeless: not at all 3. Trouble falling or staying asleep, or sleeping too much: not at all 4. Feeling tired or having little energy: not at all 5. Poor appetite or overeating: not at all 6. Feeling bad about yourself - or that you are a failure or have let yourself or your family down: not at all 7. Trouble concentrating on things, such as reading the newspaper or watching television: not at all 8. Moving or speaking so slowly that other people could have noticed. Or the opposite - being so fidgety or restless that you have been moving around a lot more than usual: not at all 9. Thoughts that you would be better off or of hurting yourself in some way: not at all Total score: 0 Depression Screening Interpretation: Negative Depression Screening Done: Yes Source: Developed by Drs. Javi Vaca, Xenia Mae, Carl Todd and colleagues, with an educational frank from [employer]. Thrive Questionnaire Date Thrive assessed: 11/07/24 I am a: Patient What is your living situation today?: I have a steady place to live Within the past 12 months, did the food you bought not last and you didn't have the money to get more?: I choose not to answer this question Within the past 12 months, did you worry whether your food would run out before you got money to buy more?: I choose not to answer this question Do you have trouble paying for medicines?: I choose not to answer this question Do you have trouble getting transportation to medical appointments?: I choose not to answer this question Do you have trouble paying your heating and electricity bill?: I choose not to answer this question Do you have trouble taking care of your child, family member or friend?: I choose not to answer this question Do you have trouble with day-to-day activities such as bathing, preparing meals, shopping, managing finances, etc.?: I choose not to answer this question Are you currently unemployed and looking for a job?: I choose not to answer this question Are you interested in more education?: I choose not to answer this question Please select the resources that you would like help with: None Currently or been in a relationship where the following occur: No concerns reported THRIVE Score: 0 AUDIT C Alcohol Use Questionnaire (AUDIT-C) 1. How often do you have a drink containing alcohol?: Never Total Score: 0 JOSE-7 AMB Questionnaire JOSE-7 Date JOSE - 7 assessed: 11/07/24 Feeling nervous, anxious, or on edge: 0 = Not at all Not being able to stop or control worryin = Not at all Worrying too much about different things: 0 = Not at all Trouble relaxin = Not at all Being so restless that it is hard to sit still: 0 = Not at all Becoming easily annoyed or irritable: 0 = Not at all Feeling afraid as if something awful might happen: 0 = Not at all Total JOSE-7 score (0-4 normal; 5-9 mild; 10-14 moderate; 15-21 severe): 0 Source: Developed by Drs. Javi Vaca, Xenia Mae, Carl Todd and colleagues, with an educational frank from [employer]. JOSE-7 Assessment Billing JOSE-7 Assessment Tool: JOSE-7 Assessment 15248 Review of Systems Const Denies body aches, Denies chills, Denies fever(s), Denies headache(s) and Denies poor appetite Eyes Reports no additional complaints ENT Denies dizziness and Denies headache(s) Card Denies chest pain, Denies syncope, Denies edema, Denies irregular heart rhythm, Denies lightheadedness and Denies dyspnea Resp Denies cough and Denies dyspnea GI Denies abdominal pain, Denies constipation, Denies diarrhea, Denies nausea and Denies vomiting Reports no additional complaints Musc Reports no additional complaints and Denies abnormal gait Skin/Breast Reports system reviewed and no additional complaints, except as documented Neuro Denies abnormal gait, Denies dizziness, Denies syncope and Denies headache(s) Psych Reports no additional complaints Physical exam (Primary Care) Vital Signs: Last Vital Signs Temp 96.9 F 11/07/24 10:33 Pulse 80 11/07/24 10:33 BP 110/76 11/07/24 10:33 Pulse Ox 98 11/07/24 10:33 Oxygen Delivery Method Room Air 11/07/24 10:33 BMI result Body Mass Index 31.0 Tobacco/Smoking Status: Tobacco use Status Tobacco use date assessed 11/07/24 11/07/24 10:44 Patient Tobacco Use Status Never used Tobacco 11/07/24 10:44 e-Cigarette/Vaping Use Never Used 11/07/24 10:44 PHQ-9: PHQ-9 Score PHQ-9: Total score 0 11/07/24 10:58 Depression Screening Interpretation: Negative Thrive Assessment: Date of Thrive Assessment Date Thrive assessed 11/07/24 11/07/24 10:44 Currently or been in a relationship where the following occur: No concerns reported Const General: cooperative, healthy appearing, comfortable and no acute distress Orientation/consciousness: patient oriented x3 HENMT Head: Yes normocephalic Ears: hearing grossly normal bilaterally General nose exam: Normal external nose present Eyes General: appearance normal, both eyes and all related structures Conjunctivae: conjunctivae normal Neck Neck: Yes full ROM and Yes no lymphadenopathy Resp Effort & Inspection: normal respiratory effort Auscultation: clear to auscultation bilaterally, no crackles, no rales, no rhonchi and no wheezes Cardio Rate: regular rate Rhythm: regular rhythm Skin General skin exam: no rashes or lesions noted Neuro General: patient oriented x3 Gait exam (Neuro): Normal gait present Extrem General: Yes normal to inspection, Yes full ROM and No edema Psych Affect: normal affect Attitude: cooperative Insight: Good insight present (Psych) Judgement: Good judgement present (Psych) Results AMB Hemoglobin A1c AMB Hemoglobin A1c 6.4 % Last Edit by RAFAEL Vasquez on 11/07/24 11:04 Results Reviewed Results Reviewed: Laboratory Last Values Hgb A1c (Clinic) 6.4 % (4.0-6.0) H 11/07/24 10:55 Coding Level of Care Code New Pt Level 4 (20062) Diagnoses HTN (hypertension) I10 Exertional angina I20.8 Abdominal aortic aneurysm I71.4 Hypercholesterolemia E78.00 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, unspecified whether recurrent F32.5 Depression Type: major depressive disorder Major depression recurrence: unspecified whether recurrent Active/Remission status: in full remission Anxiety F41.9 Breast calcification, left R92.1 Type 2 diabetes mellitus without complication, without long-term current use of insulin E11.9 Diabetes mellitus type: type 2 Diabetes mellitus supervisor model making insulin use: without intermediate use Diabetes mellitus complication status: without complication Additional Codes JOSE-7 Assessment Billing - JOSE-7 Assessment Tool: JOSE-7 Assessment 06271 ([id number]) Assessment & Plan Assessment & Plan (1) HTN (hypertension): Code(s): I10 - Essential (primary) hypertension Category: Medical Plan: Continue on current blood pressure medication. Avoid salt intake and encourage healthy diet and regular exercise. (2) Exertional angina: Code(s): I20.8 - Other forms of angina pectoris Category: Medical Plan: Currently following with cardiology. Is asymptomatic at this time and does not report and exertional dyspnea or angina. Continue on isosorbide. (3) Abdominal aortic aneurysm: Code(s): I71.4 - Abdominal aortic aneurysm, without rupture Category: Medical Plan: Currently following with cardiology for routine ultrasounds for monitoring. (4) Hypercholesterolemia: Code(s): E78.00 - Pure hypercholesterolemia, unspecified Category: Medical Plan: Avoid foods that are high in cholesterol such as red meat, fried foods, eggs and baked goods. Triglyceride goal of less than 150 and LDL goal of less than 70. Continue on simvastatin 40 (5) Depression: Code(s): F32.A - Depression, unspecified Category: Medical Qualifiers: Depression Type: major depressive disorder Major depression recurrence: unspecified whether recurrent Active/Remission status: in full remission Qualified Code(s): F32.5 - Major depressive disorder, single episode, in full remission Plan: Feels well managed on the citalopram at this time and declines counseling or further management at this time. (6) Anxiety: Code(s): F41.9 - Anxiety disorder, unspecified Category: Medical Plan: Feels well managed on the citalopram at this time and declines counseling or further management at this time. (7) Breast calcification, left: Code(s): R92.1 - Mammographic calcification found on diagnostic imaging of breast Category: Medical Plan: Ordered for repeat mammogram as she is due for her yearly screening. (8) Diabetes mellitus: Code(s): E11.9 - Type 2 diabetes mellitus without complications Category: Medical Qualifiers: Diabetes mellitus type: type 2 Diabetes mellitus supervisor model making insulin use: without supervisor model making use Diabetes mellitus complication status: without complication Qualified Code(s): E11.9 - Type 2 diabetes mellitus without complications Plan: Decrease the amount of carbohydrates such as pasta, bread, rice, and potatoes and limit the amount of sweets. Although fruits are generally healthy they should be eaten in moderation as they are still high in sugar. Hemoglobin A1c goal of less than 7%. A1c at goal today, refilled Metformin plan to repeat A1c in 3 months at follow up. Plan This note was constructed using voice recognition software. While every effort has been made to ensure accuracy and net application support specialist, still areas may have been included sometimes these areas may affect the content or meeting of the given symptoms. Total time spent caring for the patient today was 30 minutes. This includes time spent before the visit reviewing the chart, time spent during the visit, and time spent after the visit and documentation. Orders: Orders Comprehensive Met. Panel Today Z00.00 - Encounter for general adult medical examination without abnormal findings TSH reflex Free T4 Today Z00.00 - Encounter for general adult medical examination without abnormal findings Vitamin B12 and Folate Today Z00.00 - Encounter for general adult medical examination without abnormal findings Vitamin D 25-OH Total Today Z00.00 - Encounter for general adult medical examination without abnormal findings Lipid Panel Today E78.00 - Pure hypercholesterolemia, unspecified Microalbumin, Random (w Creat) Today E11.9 - Type 2 diabetes mellitus without complications XR DEXA axial skeleton Today Z78.0 - Asymptomatic menopausal state AMB Hemoglobin A1c Today Z13.9 - Encounter for screening, unspecified Complete Blood Count Auto Diff Today Z00.00 - Encounter for general adult medical examination without abnormal findings Free T4 (Free Thyroxine) Today Z00.00 - Encounter for general adult medical examination without abnormal findings MM tomosynthesis screening BI Today Z12.31 - Encounter for screening mammogram for malignant neoplasm of breast Medications: Changed From metformin 500 mg PO BID To metformin 500 mg PO BID 90 days 180 tabs 0RF
[2024-11-07 10:33] VITALS: BP 110/76; PULSE 80; TEMP 36.1; O2SAT 98; BMI 31.0
== END 2024-11-07 11:18 | disposition home or self-care (01) ==
DX: I71.40 Abdominal aortic aneurysm, without rupture, unspecified (principal); I20.89 Other forms of angina pectoris; F32.5 Major depressive disorder, single episode, in full remission; E11.9 Type 2 diabetes mellitus without complications; I10 Essential (primary) hypertension; E78.00 Pure hypercholesterolemia, unspecified; F41.9 Anxiety disorder, unspecified; R92.1 Mammographic calcification found on diagnostic imaging of breast

== ENCOUNTER → 2024-11-07 10:03 | Outpatient (BNVA) | payer OTHER, SELFPAY | DX: I10 Essential (primary) hypertension (principal); I71.40 Abdominal aortic aneurysm, without rupture, unspecified; I20.89 Other forms of angina pectoris; E78.00 Pure hypercholesterolemia, unspecified; F32.5 Major depressive disorder, single episode, in full remission; F41.9 Anxiety disorder, unspecified; R92.1 Mammographic calcification found on diagnostic imaging of breast; E11.9 Type 2 diabetes mellitus without complications | CPT/HCPCS: 83036; 96127; 99202 ==

== ENCOUNTER → 2025-01-05 09:19 | Outpatient (REF) | payer OTHER, SELFPAY ==
--- NOTE | 2025-01-05 09:22 | CA_ITS ---
Transthoracic Echocardiogram Amended Patient (Last, First, Middle): Delmi Malik, Gender: Female Date of : 1940 Age: 84 Procedure Date: 01/05/2025 Procedure Type: Transthoracic Echocardiogram Location: OP Height: 167.64 cm Weight: 80.29 kg BSA: 1.90 m2 Heart Rate: bpm BP: 138 / 62 mmHg Timber Mill Worker: TO Referring MD: Augustus Leiva MD Symptoms: I44.7 - Left bundle-branch block, unspecified Study Quality: Adequate ECG Rhythm: Sinus, LBBB Conclusions: - The left ventricular systolic function is normal. The calculated ejection fraction is 63% by biplane method. - No obvious valvular pathology seen on this study. Findings Left Ventricle Normal left ventricular cavity size. There is normal left ventricular wall thickness. The left ventricular systolic function is normal. The calculated ejection fraction is 63% by biplane method. There is no evidence of regional wall motion abnormalities. Diastolic function is normal for age. There is mild septal asymmetric hypertrophy. LV peak GLS -19.2%. Right Ventricle Normal right ventricular cavity size and systolic function. Atria Both atria are normal in size. Aortic Valve There is a normal trileaflet aortic valve. There is no aortic valve stenosis. There is no aortic valve regurgitation. Mitral Valve The mitral valve appears normal. There is mild mitral annular calcification. There is trace mitral valve regurgitation. There is no mitral valve stenosis. Pulmonic Valve The pulmonic valve is likely normal. Tricuspid Valve There is trace tricuspid valve regurgitation. There is no evidence of pulmonary hypertension. Great Vessels The asc aorta is normal in size. Small plaque is seen in the sino tubular ridge. Venous The inferior vena cava is normal in size and collapses greater than 50% with inspiration. Pericardium/Pleural There is no evidence of pericardial effusion. Prior Study Comparison No significant change compared to prior study dated: 02/04/2023. Recommendations, Care & Conclusions No obvious valvular pathology seen on this study. Measurements 2D Linear Measurements IVSd: 0.98 0.6-0.9/0.6-1.0 cm LVIDd: 4.65 3.9-5.3/4.2-5.9 cm LVIDd Index: 2.45 2.4-3.2/2.2-3.1 cm/m2 LVIDs: 2.83 2.0-3.6 cm LVPWd: 0.88 0.7-1.1 cm LA Diam: 3.80 2.7-3.8/3.0-4.0 cm LAIDs Index: 2.00 1.5-2.3 cm/m2 LV Mass: 183.03 67-162/88-224 g LV Mass Index: 96.33 43-95/49-115 g/m2 LVOT Diam: 2.00 3.0+(-)1.3 cm 2D Volumes LA Vol: 28.20 2D Systolic Function EF 4C: 59.70 >55% EF 2C: 65.80 >55% EF BiP: 62.70 >55% Mitral Valve MV VTI: 0.32 MV Pk Zeke: 1.13 MV Mn Zeke: 0.67 MV Pk Grad: 5.00 MV Mn Grad: 2.00 MV Pk E: 0.65 MV PK A: 0.96 MV Decel Time: 234.00 E/A: 0.70 E'Lateral: 4.90 E'Medial: 5.00 E/E' Med: 12.90 E/E' Lat: 13.20 PHT: 68.00 MVA PHT: 3.24 MVA Continuity: 2.96 Decel Bacon: 2.77 Aortic Valve AoV Pk Zeke: 1.59 AoV Mn Zeke: 1.14 AoV VTI: 0.39 AoV Pk Grad: 10.00 Aov Mn Grad: 6.00 YOANA Cont.VTI: 2.37 LVOT LVOT Pk Zeke: 1.19 LVOT Mn Zeke: 0.84 LVOT VTI: 0.30 LVOT Pk Grad: 6.00 LVOT Mn Grad: 3.00 LVOT Diam: 2.00 LVOT Area: 3.14 Diastolic Function MV Pk E: 0.65 MV Pk A: 0.96 E/A: 0.70 E'Medial: 5.00 E/E' Med: 12.90 E' Laterial: 4.90 E/E' Lat: 13.20 Right Ventricle TAPSE (mm): 21.00 TVS' Zeke: 11.00 Tricuspid Valve TR Pk Zeke: 2.35 TR Pk Grad: 22.00 RA Press: 3.00 RVSP: 25.00 Great Vessels Aorta Sinus of Valsalva: 2.70 2.0-3.[address] Ridge: 2.24 1.7-3.4 cm Ao Asc: 3.70 2.1-3.4 cm Updated in Other Vendor System with Status of Final Tejas Infante MD electronically signed on 01/06/2025 12:36:59 PM with status of Final
== END ==
LOC: HO.CARD 09:19
PROVIDERS: Visit Provider Internal Medicine Cardiovascular Disease
DX: I44.7 Left bundle-branch block, unspecified (principal)
CPT/HCPCS: 93306

== ENCOUNTER → 2025-01-05 09:22 | Outpatient (BNV) | payer OTHER, SELFPAY | PROVIDERS: Visit Provider Internal Medicine | DX: I42.2 Other hypertrophic cardiomyopathy (principal); I34.81 Nonrheumatic mitral (valve) annulus calcification | CPT/HCPCS: 93306; 93356 ==

== ENCOUNTER 2025-01-10 09:21 | Outpatient (AMB) | payer MEDICARE, SELFPAY ==
--- NOTE | 2025-01-10 10:09 | A.OFFVIS_ITS ---
Vital Signs 01/10/25 10:10 Height 5 ft 3 in Weight 169 lb 12.095 oz BMI 30.1 BP 120/62 Blood Pressure Location Lt brachial Position Sitting Pulse 77 Pulse Source Monitor Intake Visit Reasons: 1 year fu after echo Allergies No Known Allergies [No Known Allergies*] Allergy (Verified 11/07/24 11:00) Medication List - Last Reconciled 01/10/25 by Augustus Leiva MD aspirin (Adult Aspirin Regimen) 81 mg PO DAILY citalopram 20 mg PO DAILY hydrochlorothiazide 12.5 mg PO DAILY isosorbide mononitrate ER 60 mg PO DAILY lisinopril 20 mg PO DAILY metformin 500 mg PO BID 90 days metoprolol succinate ER 25 mg PO DAILY simvastatin 40 mg PO BEDTIME HPI Comments Details: Delmi comes for follow-up after 1 year. She has been noticing left-sided chest discomfort with exertion especially when she does work around the house or when she goes up walks a hill. She is taking all her medications. She says she does not like to take all her medications but he has been taking it more religiously. She had echocardiogram recently which showed normal LV ejection fraction without any significant obvious wall motion abnormality without any valvular abnormalities. She denies any palpitation has been denies any shortness of breath, orthopnea, PND. [facility] Medical History Breast calcification, left Abdominal aortic aneurysm Diabetes mellitus HTN (hypertension) Exertional angina Left bundle branch block Surgical History No pertinent past surgical history Family History Father No problems noted. Mother Alzheimer dementia Social History Housing: Apartment Alcohol intake: never Patient Tobacco Use Status: Never used Tobacco e-Cigarette/Vaping Use: Never Used Second Hand Smoke Exposure: No service: No Current occupational status: retired Cognitive needs: Yes (Cane) Hearing needs: No Vision needs: No Review of Systems Const Denies weakness ENT Denies dizziness Card Denies chest pain, Reports chest pain with activity, Denies syncope, Denies rapid heart rate, Denies pedal edema, Denies edema, Denies leg edema, Denies lightheadedness, Denies palpitations, Denies dyspnea, Denies dyspnea on exertion and Denies orthopnea Resp Denies cough, Denies dyspnea and Denies dyspnea on exertion GI Denies hematochezia and Denies change in stool character Musc Denies abnormal gait, Denies muscle cramps, Denies muscle weakness, Denies numbness, Denies radiating pain into limb and Denies tingling Neuro Denies Abnormal speech present, Denies abnormal gait, Denies dizziness, Denies syncope, Denies numbness, Denies tingling and Denies weakness Endo Denies palpitations Physical Exam Vital Signs: Last Vital Signs Pulse 77 01/10/25 10:10 BP 120/62 01/10/25 10:10 BMI result Body Mass Index 30.1 Const General: cooperative, comfortable, no acute distress, alert, awake, Physically active and well groomed Nutritional Appearance: obese Orientation/consciousness: patient oriented x3 Limitations: no limitations HEENT Head: Yes normocephalic and Yes atraumatic Neck Neck: Yes trachea midline, Yes supple and Yes no JVD Resp Effort & Inspection: normal respiratory effort Auscultation: clear to auscultation bilaterally Cardio Jugular venous distension: no JVD Palpation: normal PMI Rate: regular rate Rhythm: regular rhythm Heart sounds: S1 normal heart sound present, S2 normal heart sound present, no click, no gallops, Murmur heart sound present systolic early and no rubs Peripheral pulses: Peripheral pulses 2+ throughout GI Auscultation: normal bowel sounds Skin General skin exam: no rashes or lesions noted Neuro General: patient oriented x3 and no focal motor deficits Speech: No Abnormal speech present Extrem General: Yes no clubbing, cyanosis or edema Psych Appearance: grossly normal Office Procedures EKG Details: EKG shows normal sinus rhythm with PACs with left bundle-branch block [id number], Complete Assessment & Plan Assessment & Plan (1) Exertional angina: Code(s): I20.8 - Other forms of angina pectoris Category: Medical Plan: Exertional chest pain with day-to-day activity. We discussed about potentially pursuing this further with a coronary CTA. However she declines any further testing at this point time. She says she manages her symptoms with rest. Has not want to pursue any significant workup at this point time. Potential underlying significant coronary artery disease was discussed. She understands. Advised to call me with worsening symptoms of symptoms at rest. Continue current dual antianginal therapy with metoprolol as well as isosorbide therapy. Continue aspirin and statin therapy. Target goal LDL less than 70 mg/dL. Continue aggressive blood pressure control, see below. (2) HTN (hypertension): Code(s): I10 - Essential (primary) hypertension Category: Medical Plan: Hypertension which is currently well optimized advised to monitor blood pressure at home maintain a log. Goal blood pressure less than 130/84. Low-salt diet was discussed. Stress mitigation strategies was discussed. Encouraged to maintain activity level as tolerated. (3) Left bundle branch block: Code(s): I44.7 - Left bundle-branch block, unspecified Category: Medical Plan: Left bundle-branch block which is chronic. Longstanding. LV ejection fraction within normal limits. No associated symptoms with it. At this point time no interventions required. Follow up in the clinic 1 year's time, sooner p.r.n.. Thank you for allowing me to partake in her care Coding Level of Care Code Est Pt Level 4 (84417) Complex EM visit Add On G2211 Diagnoses Exertional angina I20.8 HTN (hypertension) I10 Left bundle branch block I44.7 CPT Codes EKG - CPT: 00920-[id number], Complete ([id number])
[2025-01-10 10:10] VITALS: BP 120/62; PULSE 77; BMI 30.1
== END 2025-01-10 10:33 | disposition home or self-care (01) ==
LOC: HO.HCS 09:21
PROVIDERS: PCP Internal Medicine; Visit Provider Internal Medicine Cardiovascular Disease
DX: I20.89 Other forms of angina pectoris (principal); I10 Essential (primary) hypertension; I44.7 Left bundle-branch block, unspecified
CPT/HCPCS: 93010; 99214; G2211

== ENCOUNTER → 2025-01-10 09:21 | Outpatient (BNVA) | payer MEDICARE, SELFPAY | PROVIDERS: PCP Internal Medicine; Visit Provider Internal Medicine Cardiovascular Disease | DX: I20.89 Other forms of angina pectoris (principal); I10 Essential (primary) hypertension; I44.7 Left bundle-branch block, unspecified; R94.31 Abnormal electrocardiogram [ECG] [EKG] | CPT/HCPCS: 93005; 99212 ==

== ENCOUNTER 2025-01-18 10:26 | Outpatient (REF) | payer MEDICARE, SELFPAY ==
--- NOTE | ~2025-01-18 | MM_ITS ---
EXAMINATION: DXA BONE DENSITY AXIAL HISTORY: Z78.0 - Asymptomatic menopausal state TECHNIQUE: [employer] Dual energy absorptiometry (DEXA) of the lumbar spine, total left hip, and femoral neck was performed. COMPARISON: Comparison is made with the prior examination dated 01/06/2019. FINDINGS: The bone mineral density of the lumbar spine is 1.105 with a T-score of -0.6, and a Z-score of -0.1. This is indicative of normal bone mineral density. This represents a BMD change of -0.7% compared to the prior exam. This is not statistically significant. The bone mineral density of the left total hip is 0.944 with a T-score of -0.5, and a Z-score of 0.3. This is indicative of normal bone mineral density.- This represents a BMD change of 1.3% compared to the prior exam. This is not statistically significant. The bone mineral density of the left femoral neck is 0.886 with a T-score of -1.1, and a Z-score of -0.1. This is indicative of osteopenia. This represents a BMD change of 7.0% compared to the prior exam. FRACTURE RISK: The FRAX index suggests a ten year probability of major osteoporotic fracture of 8.0%, and of hip fracture 2.0%. MM/XR DEXA axial skeleton IMPRESSION: Based on bone mineral density, and according to World Health Organization (WHO) criteria, the diagnosis is consistent with osteopenia. All bone density values are in grams per centimeter squared (g/cm2). Statistically, 68% of repeat scans fall within 1 SD (+/- 0.010 g/cm2 for AP spine L1-L4) and 1 SD (+/- 0.012 g/cm2 for femur total) FRAX is a trademark of the [employer], a World Health Organization (WHO) Collaborating Center. Electronically signed by: Javi Skaggs MD 01/18/2025 11:37 AM EDT
== END 2025-01-18 10:27 | disposition home or self-care (01) ==
LOC: HO.MAMMO 10:26
PROVIDERS: PCP Physician Assistant
DX: Z12.31 Encounter for screening mammogram for malignant neoplasm of breast (principal); Z13.820 Encounter for screening for osteoporosis; Z78.0 Asymptomatic menopausal state
CPT/HCPCS: 77063; 77067; 77080

== ENCOUNTER → 2025-01-18 11:00 | Outpatient (BNV) | payer MEDICARE, SELFPAY | PROVIDERS: PCP Physician Assistant; Visit Provider Radiology Diagnostic Radiology | DX: E28.39 Other primary ovarian failure (principal) | CPT/HCPCS: 77080 ==

== ENCOUNTER 2025-02-05 09:45 | Outpatient (AMB) | payer MEDICARE, SELFPAY ==
--- NOTE | 2025-02-05 09:52 | A.OFFPC_ITS ---
Vital Signs 02/05/25 09:53 Height 5 ft 3 in Weight 175 lb 2 oz BMI 31.0 BP 120/70 Blood Pressure Location Lt brachial Position Sitting Pulse 73 Pulse Source Pulse Oximeter Temp 97.1 F Temp Source Temporal Artery Scan Pulse Oximetry (%) 98 Oxygen Delivery Method Room Air Intake Visit Reasons: f/u DM and HLD Intake Note: Patient is here to follow up on DM, HLD. Telecasting Technician Required: No Tanner Rotary Drum Continuous Process: Not Required per policy Accompanied by: Self / Same As Patient Allergies No Known Allergies [No Known Allergies*] Allergy (Verified 02/05/25 09:52) Medication List - Last Reconciled 02/05/25 by Hailey Del Rosario PA-C aspirin (Adult Aspirin Regimen) 81 mg PO DAILY cholecalciferol (vitamin D3) 25 mcg PO DAILY citalopram 20 mg PO DAILY hydrochlorothiazide 12.5 mg PO DAILY isosorbide mononitrate ER 60 mg PO DAILY lisinopril 20 mg PO DAILY metformin 500 mg PO BID 90 days metoprolol succinate ER 25 mg PO DAILY simvastatin 40 mg PO BEDTIME Tobacco use date assessed: 02/05/25 Fall risk assessment: No Falls in past year Last assessed Fall Risk: 02/05/25 Dental Screening Dental Screen Date: 11/07/24 HPI f/u DM and HLD HPI Details 84-year-old female with past medical his tory of hypertension, exertional angina, abdominal aortic aneurysm, hypercholesterolemia, anxiety, depression, diabetes mellitus last seen 11/2024 coming in for follow up.? In review of the notes, patient was seen by Cardiology 01/10/2025 recommending coronary CTA which patient declines, target goal LDL less than 70, target blood pressure less than 130/84 advised to follow up in 1 year. Presenting for a routine follow-up of her chronic conditions. Diagnosed with Type 2 Diabetes Mellitus, currently managed on Metformin; recent Hemoglobin A1c is stable at 6.4%. Has a history of hypertension, well-controlled with current medications. On statin therapy for hyperlipidemia for cholesterol management and is overdue for blood work. She is being managed for angina pectoris with isosorbide mononitrate; denies any current chest pain and follows with a tightener for this concern. [facility] Medical History Breast calcification, left Abdominal aortic aneurysm Diabetes mellitus HTN (hypertension) Exertional angina Left bundle branch block Surgical History No pertinent past surgical history Family History Father No problems noted. Mother Alzheimer dementia Social History Housing: Apartment Alcohol intake: never Patient Tobacco Use Status: Never used Tobacco e-Cigarette/Vaping Use: Never Used Second Hand Smoke Exposure: No service: No Current occupational status: retired Cognitive needs: Yes (Cane) Hearing needs: No Vision needs: No Questionnaire Thrive Questionnaire Date Thrive assessed: 11/07/24 I am a: Patient What is your living situation today?: I have a steady place to live Within the past 12 months, did the food you bought not last and you didn't have the money to get more?: I choose not to answer this question Within the past 12 months, did you worry whether your food would run out before you got money to buy more?: I choose not to answer this question Do you have trouble paying for medicines?: I choose not to answer this question Do you have trouble getting transportation to medical appointments?: I choose not to answer this question Do you have trouble paying your heating and electricity bill?: I choose not to answer this question Do you have trouble taking care of your child, family member or friend?: I choose not to answer this question Do you have trouble with day-to-day activities such as bathing, preparing meals, shopping, managing finances, etc.?: I choose not to answer this question Are you currently unemployed and looking for a job?: I choose not to answer this question Are you interested in more education?: I choose not to answer this question Please select the resources that you would like help with: None Currently or been in a relationship where the following occur: No concerns reported THRIVE Score: 0 JOSE-7 AMB Questionnaire JOSE-7 Date JOSE - 7 assessed: 11/07/24 Source: Developed by Drs. Javi Vaca, Xenia Mae, Carl Todd and colleagues, with an educational frank from [employer]. Review of Systems Const Denies body aches, Denies chills, Denies fever(s), Denies headache(s) and Denies poor appetite Eyes Reports no additional complaints ENT Denies dizziness and Denies headache(s) Card Denies chest pain, Reports chest pain with activity, Denies syncope, Denies edema, Denies lightheadedness and Denies dyspnea Resp Denies dyspnea GI Denies nausea and Denies vomiting Reports no additional complaints Musc Reports no additional complaints and Denies abnormal gait Skin/Breast Reports system reviewed and no additional complaints, except as documented Neuro Denies abnormal gait, Denies dizziness, Denies syncope and Denies headache(s) Psych Reports no additional complaints Physical exam (Primary Care) Vital Signs: Last Vital Signs Temp 97.1 F 02/05/25 09:53 Pulse 73 02/05/25 09:53 BP 120/70 02/05/25 09:53 Pulse Ox 98 02/05/25 09:53 Oxygen Delivery Method Room Air 02/05/25 09:53 BMI result Body Mass Index 31.0 Tobacco/Smoking Status: Tobacco use Status Tobacco use date assessed 02/05/25 02/05/25 10:00 Patient Tobacco Use Status Never used Tobacco 02/05/25 10:00 e-Cigarette/Vaping Use Never Used 02/05/25 10:00 Thrive Assessment: Date of Thrive Assessment Date Thrive assessed 11/07/24 02/05/25 10:00 Currently or been in a relationship where the following occur: No concerns reported Const General: cooperative, healthy appearing, comfortable and no acute distress Orientation/consciousness: patient oriented x3 [facility] Head: Yes normocephalic Ears: hearing grossly normal bilaterally General nose exam: Normal external nose present Eyes General: appearance normal, both eyes and all related structures Conjunctivae: conjunctivae normal Neck Neck: Yes full ROM and Yes no lymphadenopathy Resp Effort & Inspection: normal respiratory effort Auscultation: clear to auscultation bilaterally, no crackles, no rales, no rhonchi and no wheezes Cardio Rate: regular rate Rhythm: regular rhythm Skin General skin exam: no rashes or lesions noted Neuro General: patient oriented x3 Gait exam (Neuro): Normal gait present Extrem General: Yes normal to inspection, Yes full ROM and No edema Psych Affect: normal affect Attitude: cooperative Insight: Good insight present (Psych) Judgement: Good judgement present (Psych) Results AMB Hemoglobin A1c AMB Hemoglobin A1c 6.4 % Last Edit by RAFAEL Vasquez on 02/05/25 10:04 Results Reviewed Results Reviewed: Laboratory Last Values Hgb A1c (Clinic) 6.4 % (4.0-6.0) H 02/05/25 09:52 Coding Level of Care Code Est Pt Level 3 (28757) Diagnoses Primary hypertension I10 Hypertension type: primary hypertension Exertional angina I20.8 Hypercholesterolemia E78.00 Type 2 diabetes mellitus without complication, without long-term current use of insulin E11.9 Diabetes mellitus type: type 2 Diabetes mellitus regional intermodal truck driver insulin use: without regional intermodal truck driver use Diabetes mellitus complication status: without complication Assessment & Plan Assessment & Plan (1) HTN (hypertension): Code(s): I10 - Essential (primary) hypertension Category: Medical Qualifiers: Hypertension type: primary hypertension Qualified Code(s): I10 - Essential (primary) hypertension Plan: Continue on current blood pressure medication. Avoid salt intake and encourage healthy diet and regular exercise. Target goal blood pressure less than 130/84. Blood pressure at goal today 120/70 (2) Exertional angina: Code(s): I20.8 - Other forms of angina pectoris Category: Medical Plan: Currently following with cardiology. Is asymptomatic at this time and does not report and exertional dyspnea or angina. Continue on isosorbide. Cardiology recommended coronary CTA which was declined by the patient. I did discuss this with the with the patient and she continues to decline this test. (3) Hypercholesterolemia: Code(s): E78.00 - Pure hypercholesterolemia, unspecified Category: Medical Plan: Avoid foods that are high in cholesterol such as red meat, fried foods, eggs and baked goods. Triglyceride goal of less than 150 and LDL goal of less than 70. Continue on simvastatin 40. Reminded patient about blood work advised patient to have blood work done in the next few weeks. (4) Diabetes mellitus: Code(s): E11.9 - Type 2 diabetes mellitus without complications Category: Medical Qualifiers: Diabetes mellitus type: type 2 Diabetes mellitus retirement insulin use: without regional intermodal truck driver use Diabetes mellitus complication status: without complication Qualified Code(s): E11.9 - Type 2 diabetes mellitus without complications Plan: Decrease the amount of carbohydrates such as pasta, bread, rice, and potatoes and limit the amount of sweets. Although fruits are generally healthy they should be eaten in moderation as they are still high in sugar. Hemoglobin A1c goal of less than 7%. A1c at goal today, refilled Metformin plan to repeat A1c in 5 months at follow up. Patient is declining three-month follow up as she does not like to leave the house during the summer. Plan The patient's Type 2 Diabetes Mellitus is stable with her current therapy, and continuation of Metformin is recommended. Hyperlipidemia management is being evaluated; fasting labs are to be completed at her convenience to confirm cholesterol control. Her hypertension is stable, with no changes needed to her management. Her angina is being effectively managed, and she reports no issues with her medications. A follow-up visit is planned in July, where we will review her lab results and discuss further management if needed. This note was constructed using voice recognition software. While every effort has been made to ensure accuracy and photocomposing machine operator, still areas may have been included sometimes these areas may affect the content or meeting of the given symptoms. Total time spent caring for the patient today was 20 minutes. This includes time spent before the visit reviewing the chart, time spent during the visit, and time spent after the visit and documentation. Patient was informed and verbally consented to the use of an ambient scribe for clinic note documentation during this visit. Orders: Orders AMB Hemoglobin A1c Today E11.9 - Type 2 diabetes mellitus without complications
[2025-02-05 09:53] VITALS: BP 120/70; PULSE 73; TEMP 36.2; O2SAT 98; BMI 31.0
== END 2025-02-05 10:25 | disposition home or self-care (01) ==
LOC: HO.HMCH 09:46
DX: I10 Essential (primary) hypertension (principal); I20.89 Other forms of angina pectoris; E78.00 Pure hypercholesterolemia, unspecified; E11.9 Type 2 diabetes mellitus without complications

== ENCOUNTER → 2025-02-05 09:45 | Outpatient (BNVA) | payer OTHER, SELFPAY | DX: I10 Essential (primary) hypertension (principal); I20.89 Other forms of angina pectoris; E78.00 Pure hypercholesterolemia, unspecified; E11.9 Type 2 diabetes mellitus without complications | CPT/HCPCS: 83036; 99212 ==

== ENCOUNTER 2025-07-11 08:16 | Outpatient (AMB) | payer MEDICARE, SELFPAY ==
--- NOTE | 2025-07-11 08:23 | A.OFFPC_ITS ---
Vital Signs 07/11/25 08:24 Height 5 ft 3 in Weight 172 lb 4 oz BMI 30.5 BP 110/70 Blood Pressure Location Lt brachial Position Sitting Pulse 64 Pulse Source Pulse Oximeter Temp 96.9 F Temp Source Temporal Artery Scan Pulse Oximetry (%) 98 Oxygen Delivery Method Room Air Intake Visit Reasons: f/u DM and HLD Intake Note: Patient is here to follow up on DM, HLD. Cad Application Support Specialist Required: No Compensation Agent: Not Required per policy Accompanied by: Self / Same As Patient Allergies No Known Allergies (No Known Allergies*) Allergy (Verified 07/11/25 08:49) Medication List - Last Reconciled 07/11/25 by Hailey Del Rosario PA-C aspirin 81 mg PO DAILY cholecalciferol (vitamin D3) 25 mcg PO DAILY hydrochlorothiazide 12.5 mg PO DAILY isosorbide mononitrate ER 60 mg PO DAILY lisinopril 20 mg PO DAILY metformin 500 mg PO BID 90 days metoprolol succinate ER 25 mg PO DAILY simvastatin 40 mg PO BEDTIME Tobacco use date assessed: 07/11/25 Fall risk assessment: No Falls in past year Last assessed Fall Risk: 07/11/25 Dental Screening Dental Screen Date: 11/07/24 HPI f/u DM and HLD HPI Details 84-year-old female with past medical his tory of hypertension, exertional angina, abdominal aortic aneurysm, hypercholesterolemia, anxiety, depression, diabetes mellitus last seen 02/2025 coming in for follow up. Presenting with management of chronic conditions including Type 2 Diabetes Mellitus, Hypertension, and Hyperlipidemia. Type 2 Diabetes Mellitus Hemoglobin A1c improved to 6.1%, indicating better control. Blood pressure is stable and within normal limits. Awaiting cholesterol results, previous management effective. [facility] Medical History Breast calcification, left Abdominal aortic aneurysm Diabetes mellitus HTN (hypertension) Exertional angina Left bundle branch block Surgical History No pertinent past surgical history Family History Father No problems noted. Mother Alzheimer dementia Social History Housing: Apartment Alcohol intake: never Patient Tobacco Use Status: Never used Tobacco e-Cigarette/Vaping Use: Never Used Second Hand Smoke Exposure: No service: No Current occupational status: retired Cognitive needs: Yes (Cane) Hearing needs: No Vision needs: Yes (Glasses) Questionnaire Thrive Questionnaire Date Thrive assessed: 11/07/24 I am a: Patient What is your living situation today?: I have a steady place to live Within the past 12 months, did the food you bought not last and you didn't have the money to get more?: I choose not to answer this question Within the past 12 months, did you worry whether your food would run out before you got money to buy more?: I choose not to answer this question Do you have trouble paying for medicines?: I choose not to answer this question Do you have trouble getting transportation to medical appointments?: I choose not to answer this question Do you have trouble paying your heating and electricity bill?: I choose not to answer this question Do you have trouble taking care of your child, family member or friend?: I choose not to answer this question Do you have trouble with day-to-day activities such as bathing, preparing meals, shopping, managing finances, etc.?: I choose not to answer this question Are you currently unemployed and looking for a job?: I choose not to answer this question Are you interested in more education?: I choose not to answer this question Please select the resources that you would like help with: None Currently or been in a relationship where the following occur: No concerns rep orted THRIVE Score: 0 JOSE-7 AMB Questionnaire JOSE-7 Date JOSE - 7 assessed: 11/07/24 Source: Developed by Drs. Javi Vaca, Xenia Mae, Carl Todd and colleagues, with an educational frank from [employer]. Review of Systems Const Denies body aches, Denies chills, Denies fever(s), Denies headache(s) and Denies poor appetite Eyes Reports no additional complaints ENT Denies dysphagia, Denies dizziness, Denies headache(s) and Denies odynophagia Card Denies chest pain, Denies syncope, Denies edema, Denies irregular heart rhythm, Denies lightheadedness and Denies dyspnea Resp Denies cough and Denies dyspnea GI Denies abdominal pain, Denies constipation, Denies dysphagia, Denies diarrhea, Denies nausea, Denies odynophagia and Denies vomiting Reports no additional complaints Musc Reports no additional complaints and Denies abnormal gait Skin/Breast Reports system reviewed and no additional complaints, except as documented Neuro Denies abnormal gait, Denies dizziness, Denies syncope and Denies headache(s) Psych Reports no additional complaints Physical exam (Primary Care) Vital Signs: Last Vital Signs Temp 96.9 F 07/11/25 08:24 Pulse 64 07/11/25 08:24 BP 110/70 07/11/25 08:24 Pulse Ox 98 07/11/25 08:24 Oxygen Delivery Method Room Air 07/11/25 08:24 BMI result Body Mass Index 30.5 Tobacco/Smoking Status: Tobacco use Status Tobacco use date assessed 07/11/25 07/11/25 08:33 Patient Tobacco Use Status Never used Tobacco 07/11/25 08:33 e-Cigarette/Vaping Use Never Used 07/11/25 08:33 Thrive Assessment: Date of Thrive Assessment Date Thrive assessed 11/07/24 07/11/25 08:33 Currently or been in a relationship where the following occur: No concerns reported Const General: cooperative, healthy appearing, comfortable and no acute distress Orientation/consciousness: patient oriented x3 HENMT Head: Yes normocephalic Ears: hearing grossly normal bilaterally General nose exam: Normal external nose present Eyes General: appearance normal, both eyes and all related structures Conjunctivae: conjunctivae normal Neck Neck: Yes full ROM and Yes no lymphadenopathy Resp Effort & Inspection: normal respiratory effort Auscultation: clear to auscultation bilaterally, no crackles, no rales, no rhonchi and no wheezes Cardio Rate: regular rate Rhythm: regular rhythm Skin General skin exam: no rashes or lesions noted Neuro General: patient oriented x3 Gait exam (Neuro): Normal gait present Extrem General: Yes normal to inspection, Yes full ROM and No edema Psych Affect: normal affect Attitude: cooperative Insight: Good insight present (Psych) Judgement: Good judgement present (Psych) Results AMB Hemoglobin A1c AMB Hemoglobin A1c 6.1 % Last Edit by RAFAEL Vasquez on 07/11/25 08:40 Results Reviewed Results Reviewed: Laboratory Last Values Hgb A1c (Clinic) 6.1 % (4.0-6.0) H 07/11/25 08:23 Coding Level of Care Code Est Pt Level 3 (49576) Diagnoses Primary hypertension I10 Hypertension type: primary hypertension Exertional angina I20.8 Hypercholesterolemia E78.00 Type 2 diabetes mellitus without complication, without long-term current use of insulin E11.9 Diabetes mellitus complication status: without complication Diabetes mellitus terminal supervisor insulin use: without terminal supervisor use Diabetes mellitus type: type 2 Assessment & Plan Assessment & Plan (1) HTN (hypertension): Code(s): I10 - Essential (primary) hypertension Category: Medical Qualifiers: Hypertension type: primary hypertension Qualified Code(s): I10 - Essential (primary) hypertension Plan: Continue on current blood pressure medication. Avoid salt intake and encourage healthy diet and regular exercise. Target goal blood pressure less than 130/84. Blood pressure at goal today 110/70 (2) Exertional angina: Code(s): I20.8 - Other forms of angina pectoris Category: Medical Plan: Currently following with cardiology. Is asymptomatic at this time and does not report and exertional dyspnea or angina. Continue on isosorbide. Cardiology recommended coronary CTA which was declined by the patient. She states she is overall feeling well and is not interested in further workup at this time. (3) Hypercholesterolemia: Code(s): E78.00 - Pure hypercholesterolemia, unspecified Category: Medical Plan: Avoid foods that are high in cholesterol such as red meat, fried foods, eggs and baked goods. Triglyceride goal of less than 150 and LDL goal of less than 70. Continue on simvastatin 40. Reminded about cholesterol labs. (4) Diabetes mellitus: Code(s): E11.9 - Type 2 diabetes mellitus without complications Category: Medical Qualifiers: Diabetes mellitus complication status: without complication Diabetes mellitus terminal supervisor insulin use: without terminal supervisor use Diabetes mellitus type: type 2 Qualified Code(s): E11.9 - Type 2 diabetes mellitus without complications Plan: Decrease the amount of carbohydrates such as pasta, bread, rice, and potatoes an d limit the amount of sweets. Although fruits are generally healthy they should be eaten in moderation as they are still high in sugar. Hemoglobin A1c goal of less than 7%. A1c at goal today 6.1% she will continue on Metformin 500 BID Plan This note was constructed using voice recognition software. While every effort has been made to ensure accuracy and database architect, still areas may have been included sometimes these areas may affect the content or meeting of the given symptoms. Total time spent caring for the patient today was 20 minutes. This includes time spent before the visit reviewing the chart, time spent during the visit, and time spent after the visit and documentation. Patient was informed and verbally consented to the use of an ambient scribe for clinic note documentation during this visit. Orders: Orders Lipid Panel Today E78.00 - Pure hypercholesterolemia, unspecified Vitamin D 25-OH Total Today Z13.21 - Encounter for screening for nutritional disorder Vitamin B12 and Folate Today Z13.21 - Encounter for screening for nutritional disorder Complete Blood Count Auto Diff Today E11.9 - Type 2 diabetes mellitus without complications, Z13.0 - Encounter for screening for diseases of the blood and blood-forming organs and certain disorders involving the immune mechanism Comprehensive Met. Panel Today E11.9 - Type 2 diabetes mellitus without complications, Z00.00 - Encounter for general adult medical examination without abnormal findings TSH reflex Free T4 Today Z13.29 - Encounter for screening for other suspected endocrine disorder AMB Hemoglobin A1c Today E11.9 - Type 2 diabetes mellitus without complications Microalbumin, Random (w Creat) Today E11.9 - Type 2 diabetes mellitus without complications Medications: Refilled cholecalciferol (vitamin D3) 25 mcg PO DAILY 90 caps 3RF lisinopril 20 mg PO DAILY 90 tabs 3RF simvastatin 40 mg PO BEDTIME 90 tabs 3RF metformin 500 mg PO BID 180 tabs 2RF 90 days hydrochlorothiazide 12.5 mg PO DAILY 90 caps 3RF isosorbide mononitrate ER 60 mg PO DAILY 90 tabs 3RF metoprolol succinate ER 25 mg PO DAILY 90 tabs 3RF
[2025-07-11 08:24] VITALS: BP 110/70; PULSE 64; TEMP 36.1; O2SAT 98; BMI 30.5
== END 2025-07-11 09:08 | disposition home or self-care (01) ==
LOC: HO.HMCH 08:16
DX: I10 Essential (primary) hypertension (principal); I20.89 Other forms of angina pectoris; E78.00 Pure hypercholesterolemia, unspecified; E11.9 Type 2 diabetes mellitus without complications

== ENCOUNTER 2025-07-11 08:16 | Outpatient (REF) | payer OTHER, SELFPAY ==
[2025-07-11 09:31] LABS: MANUAL DIFF FLAG NO
[2025-07-11 09:47] LABS: Hematocrit 37.1 % (37.0-47.0); Hemoglobin 11.6 g/dl (12.0-16.0); Imm Gran Abs Auto 0.02 X10*3/uL (0.00-0.03); Imm Gran Pct Auto 0.3 % (0.0-0.4); Lymphocytes Absolute Auto 2.4 X10*3/uL (1.2-4.9); Mean Corpuscular HGB Conc 31.3 g/dl (31.0-35.0); Mean Corpuscular Hemoglobin 25.6 pg (27.0-33.0); Mean Corpuscular Volume 81.7 fL (80.0-98.0); NRBC Abs Auto 0.000 X10*3/uL (0.0-0.012); NRBC Pct Auto 0.0 /100WBC (0.0-0.2); Platelet Count 282 X10*3/uL (160-400); Red Blood Count 4.54 X10*6/uL (4.20-5.50); White Blood Count 6.8 X10*3/uL (4.8-10.8)
[2025-07-11 10:34] LABS: Alanine Aminotransferase 13 U/L (0-31); Albumin Level 4.3 g/dL (3.5-5.0); Alkaline Phosphatase 57 U/L (39-117); Anion Gap 11 (12-20); Aspartate Amino Transferase 18 U/L (5-31); Blood Urea Nitrogen 10 mg/dL (9-16); Calcium 9.9 mg/dL (8.4-10.2); Carbon Dioxide 29 mmol/L (22-29); Chloride 105 mmol/L (96-108); Cholesterol 159 mg/dL (<200); Estimated Glomerular Filt Rate > 60; HDL Cholesterol 70 mg/dL (>40); Potassium 4.4 mmol/L (3.3-5.1); Sodium 141 mmol/L (135-145); Total Protein 7.6 g/dL (6.5-8.0); Triglycerides 63 mg/dL (<150)
[2025-07-11 10:54] LABS: Folate 7.1 ng/mL (> or = 4.0); Vitamin B12 350 pg/mL (200-900)
[2025-07-11 11:32] LABS: Free T4 (Free Thyroxine) 0.95 ng/dL (0.71-1.85)
[2025-07-11 11:36] LABS: Microalbum/Creatinine Ratio Ur 6.5 ug/mg cr (<30)
== END 2025-07-11 08:17 | disposition home or self-care (01) ==
LOC: HO.LAB 08:16
DX: I10 Essential (primary) hypertension (principal); I20.89 Other forms of angina pectoris; E78.00 Pure hypercholesterolemia, unspecified; E11.9 Type 2 diabetes mellitus without complications; Z00.00 Encounter for general adult medical examination without abnormal findings
CPT/HCPCS: 36415; 80053; 80061; 82043; 82306; 82570; 82607; 82746; 83036; 84439; 84443; 85025; 99212